=== PATIENT | male | born 1985 | race Hispanic/Latino ===

== ENCOUNTER 2022-08-24 15:40 | Emergency (ER) | payer SELFPAY ==
[~2022-08-24] VITALS: Ht 167.6 cm; Wt 62.6 kg
[2022-08-24 16:58] VITALS: BP 132/85
[2022-08-24 17:00] VITALS: BP 133/90
[2022-08-24 17:42] LABS: URINE BILIRUBIN - DIPSTICK NEGATIVE (NEGATIVE); URINE BLOOD DIPSTICK NEGATIVE (NEGATIVE); URINE COLOR YELLOW; URINE GLUCOSE - DIPSTICK NEGATIVE (NEGATIVE); URINE KETONE NEGATIVE (NEGATIVE); URINE LEUK ESTERASE NEGATIVE (NEGATIVE); URINE PH 7.5 (4.5-8.0); URINE PROTEIN - DIPSTICK NEGATIVE (NEG-TRACE); URINE SPECIFIC GRAVITY 1.025; URINE UROBILINOGEN - DIPSTICK 0.2 E.U./dL (0.2)
[2022-08-24 17:42] LABS: BASO% 0.1 % (0-3); EOS% 0.2 % (0-8); HEMATOCRIT 46.5 % (39.0-50.0); HEMOGLOBIN 15.6 g/dl (14.0-18.0); IMMATURE GRANULOCYTES 0.1 % (0.0-5.0); LYMPH% 14.4 % (15-41); MEAN CELL VOLUME 94.7 fL CALC (80.0-100.0); MEAN CORPUSCULAR HGB 31.8 pG CALC (26.0-32.0); MEAN CORPUSCULAR HGB CONC 33.5 g/dL CAL (32.0-36.0); MONO% 5.3 % (2-13); NEUT# 7.33 thou/uL (1.82-7.42); NEUT% 79.9 % (42-76); RED BLOOD COUNT 4.91 mill/uL (4.70-6.10); RED CELL DISTRI WIDTH 12.7 % (11.5-15.5)
[2022-08-24 17:43] LABS: URINE NITRITE - DIPSTICK NEGATIVE (Negative)
[2022-08-24 17:58] LABS: ALKALINE PHOSPHATASE 100 u/l (38-126); ANION GAP 13 (6-22 (CALC)); BILIRUBIN, TOTAL 0.6 mg/dL (0.2-1.3); BUN 12 mg/dL (9-20); BUN/CREATININE RATIO 18 (12-20 (CALC)); CARBON DIOXIDE 27 mmol/l (22-30); CHLORIDE 102 mmol/l (95-108); CREATININE 0.7 mg/dL (0.7-1.3); GFR FOR AFR.AMER. > 60 ML/MIN (>=60 (CALC)); GFR OTHER RACES > 60 ML/MIN (>=60 (CALC)); POTASSIUM 4.1 mmol/l (3.5-5.1); SGOT/AST 31 u/l (17-59); SODIUM 138 mmol/l (137-146); TOTAL PROTEIN 8.5 g/dL (6.3-8.2)
[2022-08-24 19:40] VITALS: BP 128/79
== END 2022-08-24 19:40 | disposition home or self-care (01) | DRG 696 ==
LOC: ED 15:40
PROVIDERS: Family Medicine; Nurse Practitioner
DX: R30.0 Dysuria (principal); R10.9 Unspecified abdominal pain